=== PATIENT | male | born 2000 | race Hispanic/Latino ===

== ENCOUNTER 2024-08-04 20:47 | Emergency (ER) | payer SELFPAY ==
[2024-08-04 23:13] LABS: #Basophils 0.09 10x3/uL (0.0-0.2); #Eosinphils 0.34 10x3/uL (0.0-0.5); #Monocytes 0.92 10x3/uL (0.0-1.1); %Eosinophils 3.9 % (0.0-6.0); %Lymphocytes 40.2 % (18.0-47.0); %Monocytes 10.6 % (0.0-10.0); %Neutrophils 43.8 % (40.0-75.0); Hematocrit 38.3 % (38.8-50.0); Hemoglobin 13.1 g/dL (13.5-17.5); Mean Corpuscular HGB CONC 34.2 g/dL (32.0-36.0); Mean Corpuscular Hemoglobin 28.3 pg (27.0-33.0); Mean Corpuscular Volume 82.7 fL (81.2-95.1); Mean Platelet Volume 9.5 fL (7.4-10.4); Platelet Count 356 10x3/uL (150-450); RBC Distribution Width 13.6 % (11.5-14.5); Red Blood Cell (RBC) Count 4.63 10x6/uL (4.32-5.72); White Blood Cell (WBC) Count 8.7 10x3/uL (3.5-10.5)
[2024-08-04 23:57] LABS: ALT (SGPT) 68 U/L (8-55); AST (SGOT) 57 U/L (5-34); Albumin 2.8 g/dL (3.5-5.0); Alkaline Phosphatase 64 U/L (40-110); Anion Gap 10 mmol/L (10-20); BUN (Urea Nitrogen) 12 mg/dL (8.9-20.6); Bilirubin, Total 0.4 mg/dL (0.2-1.2); Calc. Creatinine Clearance 0 mL/min (70-130); Carbon Dioxide 23 mmol/L (22-29); Chloride 104 mmol/L (98-107); Estimated GFR 123; Globulin 2.8 g/dL (2.4-3.5); Glucose 109 mg/dL (70-105); Protein, Total 5.6 g/dL (6.0-8.3); Sodium 133 mmol/L (136-145)
== END 2024-08-05 00:57 | disposition home or self-care (01) ==
LOC: CSHERS 20:47
DX: B34.9 Viral infection, unspecified (principal); F17.290 Nicotine dependence, other tobacco product, uncomplicated; Z55.0 Illiteracy and low-level literacy
CPT/HCPCS: 36415; 71045; 80053; 84484; 85025; 93005